=== PATIENT | male | born 1985 | race African-American/Black ===

== ENCOUNTER 2018-05-22 21:50 | Emergency (ER) | payer OTHER ==
--- NOTE | 2018-05-22 21:52 | UC ---
Abdominal Pain Male HPI - HPI Summary HPI Summary: 33 yo male presents to requesting STD testing. Pt without any complaints. no penile discharge, odor, dysuria, hematuria. no pain in penis or testicles. No pain with ejaculation. Pt states he is sexually active and uses condoms with every encounter. Pt states he has not symptoms but wants to be looked at. No fever, chills. No constipation, rectal pain. Pt states had chlamydia many years ago - no recent infections. No known contact with infected / symptomatic partners pt's medications reviewed this visit - History of Current Complaint Stated Complaint: PERSONAL Time Seen by Provider: 05/22/18 21:51 Hx Obtained From: Patient - Allergies/Home Medications Allergies/Adverse Reactions: Allergies Allergy/AdvReac Type Severity Reaction Status Date / Time Penicillins Allergy Unknown Verified 05/22/18 22:05 Reaction Details Home Medications: Home Medications Metformin ER (NF) 500 mg PO DAILY 05/22/18 [History Confirmed 05/22/18] PMH/Surg Hx/FS Hx/Imm Hx Previously Healthy: Yes Endocrine History: Diabetes - metformin - Surgical History Surgical History: None - Family History Known Family History: Positive: Non-Contributory - Social History Occupation: Employed Full-time Lives: With Family Alcohol Use: Daily Substance Use Type: None Smoking Status (MU): Heavy Every Day Tobacco Smoker Review of Systems All Other Systems Reviewed And Are Negative: Yes Constitutional: Positive: Fatigue Genitourinary: Negative: Dysuria, Urgency, Vaginal/Penile Burning, Vaginal/ Penile Itching, Vaginal/Penile Discharge, Vaginal/Penile Pain Physical Exam - Summary Physical Exam Summary: Vital Signs Reviewed: Yes A+Ox3, no distress Eyes: Conjunctiva slight injection b/l no photophobia ENT: Hearing grossly normal Neck: Positive: Supple Respiratory: Positive: No respiratory distress, No accessory muscle use + CTA throughout no w/r Cardiovascular: RRR nl s1, s2 no m/r CBT <2 sec abd soft + BS nt/nd no guarding, no distension Musculoskeletal Exam: ambulatory without difficulty Neurological: Positive: Alert, + sensation throughout Psychological: Positive: Normal Response To Family Skin: Positive: no rash, no ecchymosis Abd Pain Male Course/Dx - Course Course Of Treatment: Patient presents to urgent care requesting testing for sexual transmitted disease Patient without any complaints or symptoms. Patient denies penile discharge, burning, hematuria, rectal pain. Patient with no known contacts. Discussed with patient sexual transmitted diseases. Patient requesting testing for HIV, hepatitis C, syphilis, GC/Chlamydia/and Trichomonas. Patient understands may take 5-7 days results to come back. Patient understands he may be called back for some of these results. Patient knows that the Department of Health may be contacted if certain ones are positive. No treatment given today as patient is asymptomatic. Patient states understanding and agreement with plan. - Differential Dx/Clinical Impression Provider Diagnosis: Screen for sexually transmitted diseases Discharge - Sign-Out/Discharge Documenting (check all that apply): Patient Departure All imaging exams completed and their final reports reviewed: No Studies - Discharge Plan Condition: Stable Disposition: HOME Patient Education Materials: Sexually Transmitted Diseases (ED) Forms: *Work Release Referrals: PETTY Nickerson [Medical Doctor] - Additional Instructions: - You have been tested for sexually transmitted diseases such as Gonorrhea and Chlamydia. These results may take 5 days to come back. If you test positive, you may receive a call from the department of health in accordance with [facility] law - It is recommended you use a condom to protect yourself and your partner from sexually transmitted infections It is recommended you follow-up with a primary care provider. You have been given the referral information for the physician referral center. This office can assist you in establishing with a new provider - Billing Disposition and Condition Condition: STABLE Disposition: Home
[2018-05-22 22:05] VITALS: BP 133/73
--- NOTE | 2018-05-23 14:15 | UC ---
- Progress Note Progress Note: neg Syphhillis neg hep C HIV pending no change ljj Course/Dx - Diagnoses Provider Diagnoses: Screen for sexually transmitted diseases Discharge - Sign-Out/Discharge Documenting (check all that apply): Post-Discharge Follow Up All imaging exams completed and their final reports reviewed: No Studies - Discharge Plan Condition: Stable Disposition: HOME Patient Education Materials: Sexually Transmitted Diseases (ED) Forms: *Work Release Referrals: PETTY Nickerson [Medical Doctor] - Additional Instructions: - You have been tested for sexually transmitted diseases such as Gonorrhea and Chlamydia. These results may take 5 days to come back. If you test positive, you may receive a call from the department of health in accordance with [facility] law - It is recommended you use a condom to protect yourself and your partner from sexually transmitted infections It is recommended you follow-up with a primary care provider. You have been given the referral information for the physician referral center. This office can assist you in establishing with a new provider - Billing Disposition and Condition Condition: STABLE Disposition: Home
== END 2018-05-22 22:31 | disposition home or self-care (01) ==
LOC: UCCORT 21:50
DX: Z11.3 Encounter for screening for infections with a predominantly sexual mode of transmission (principal); E11.9 Type 2 diabetes mellitus without complications; Z79.84 Long term (current) use of oral hypoglycemic drugs; Z88.0 Allergy status to penicillin; F17.210 Nicotine dependence, cigarettes, uncomplicated
CPT/HCPCS: 36415; 86592; 86703; 86803; 87491; 87591; 87661; 99211; G0463